=== PATIENT | male | born 2000 | race Caucasian/White ===

== ENCOUNTER 2022-02-12 17:09 | Emergency (ER) | payer MEDICAID, OTHER ==
[2022-02-12] MEDS ORDERED: IBUPROFEN 600 MG TAB PO ONE (20:37)
[2022-02-12] MEDS ORDERED: TETANUS,DIPH,PERTUSS(ACELL) VACCINE 0.5 ML SYRINGE IM ONE (20:37)
[2022-02-12] MEDS ORDERED: ACETAMINOPHEN 500 MG TAB PO ONE (20:37)
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
[2022-02-13 00:17] VITALS: BP 127/82
== END 2022-02-13 00:18 | disposition home or self-care (01) ==
LOC: ED 17:09
DX: S13.8XXA Sprain of joints and ligaments of other parts of neck, initial encounter (principal); S60.812A Abrasion of left wrist, initial encounter; M62.830 Muscle spasm of back; V89.2XXA Person injured in unspecified motor-vehicle accident, traffic, initial encounter; Y93.89 Activity, other specified; Y92.488 Other paved roadways as the place of occurrence of the external cause; Y99.8 Other external cause status
CPT/HCPCS: 71046; 72100; 72125; 72170; 90471; 90715; 99284